=== PATIENT | male | born 1965 | race American Indian/Alaskan Native ===

== ENCOUNTER 2021-05-31 09:46 | Day surgery (SDC) | payer BC ==
[2021-05-31] MEDS ORDERED: HEPARIN 5,000 UNIT/1 ML VIAL SUB-Q NR (10:45)
[2021-05-31] MEDS ORDERED: ceFAZolin/STERILE WATER 2 GM/20 ML SYRINGE IV NR (11:00)
[2021-05-31] MEDS ORDERED: LACTATED RINGERS 1,000 ML IV SCH (11:30)
--- NOTE | 2021-05-31 11:43 | Anesthesia Day of Surgery ---
Anesthesia Day of Surgery - Day of Surgery Patient Examined: Yes Patient H&P Reviewed: Yes Patient is NPO: Yes
--- NOTE | 2021-05-31 11:44 | Anesthesia Consultation ---
Anesthesia Consult and Med Hx Date of service: 05/31/21 - Airway Anesthetic Teeth Evaluation: Good, Caps, Crowns, Bridges ROM Head & Neck: Adequate Mental/Hyoid Distance: Adequate Mallampati Class: Class II Intubation Access Assessment: Good - Pre-Operative Health Status ASA Pre-Surgery Classification: ASA1 Proposed Anesthetic Plan: General - Pulmonary Hx Smoking: No - Central Nervous System Hx Psychiatric Problems: No - Gastrointestinal Hx Gastroesophageal Reflux Disease: No - Hematic Hx Sickle Cell Disease: No - Other Systems Hx Alcohol Use: No Hx Substance Use: No Hx Cancer: No Hx Obesity: No
[2021-05-31] MEDS ORDERED: HYDROmorphone 1 MG/1 ML INJ IV PRN ×3 (12:00→18:15)
[2021-05-31] MEDS ORDERED: CELECOXIB 200 MG CAP PO NR (12:00)
[2021-05-31] MEDS ORDERED: ACETAMINOPHEN 500 MG TAB PO SCH (12:00)
[2021-05-31] MEDS ORDERED: MAGNESIUM OXIDE 400 MG TAB PO SCH (12:00)
[2021-05-31] MEDS ORDERED: ONDANSETRON 4 MG/2 ML INJ IV PRN ×2 (12:00→18:15)
[2021-05-31] MEDS ORDERED: GABAPENTIN 300 MG CAP PO NR (12:00)
[2021-05-31] MEDS ORDERED: BUPIVACAINE/PF (0.5%) 5 MG/1 ML 30 ML VIAL INFILTRATI ONE ×2 (16:01→16:30)
[2021-05-31] MEDS ORDERED: fentaNYL 100 MCG/2 ML INJ ONE (16:02)
[2021-05-31] MEDS ORDERED: LIDOCAINE MPF (2%) 20 MG/1 ML VIAL 5 ML ONE (16:02)
[2021-05-31] MEDS ORDERED: propofoL 200 MG/20 ML VIAL IV ONE (16:02)
[2021-05-31] MEDS ORDERED: dexAMETHasone 20 MG/5 ML VIAL ONE (16:23)
[2021-05-31] MEDS ORDERED: ONDANSETRON 4 MG/2 ML INJ ONE (16:23)
[2021-05-31] MEDS ORDERED: KETOROLAC 30 MG/1 ML INJ ONE (16:24)
[2021-05-31] MEDS ORDERED: SODIUM CHLORIDE 0.9% IRR 1,500 ML BOTTLE IR ONE (16:30)
[2021-05-31] MEDS ORDERED: LACTATED RINGERS 1,000 ML ONE (16:59)
--- NOTE | 2021-05-31 18:13 | Procedure Note ---
Date of procedure: 05/31/21 Pre-op diagnosis: RIH Post-op diagnosis: same (Direct) Procedure: Open repair of RIH Description of procedure: Pt was placed supine on the OR table. General anesthesia was administered. Lower abdomen was prepped and draped. The proposed incision was infiltrated with 8 ml of 0.5% Marcaine. A curvilinear incision was made in the right suprapubic area. Hemostasis was obtained with the Bovie. External oblique aponeurosis was exposed. The aponeurosis was incised over the inguinal canal. A John drain was placed about the cord contents. A direct hernia was identified. Cord was skeletonized and no indirect hernia was found. The conjoined tendon was approximated to the shelving portion of Poupart's ligament with interrupted sutures of 0-Ethibond. External oblique aponeurosis was approximated with a running 3-0 Vicryl. Skin was approximated with a running, subcuticular suture of 4-0 Monocryl. Skin glue was applied. Pt tolerated the procedure well and was taken to PACU in stable condition. Anesthesia: other (LMA) Surgeon: SILVIA RIVERA Estimated blood loss: minimal Pathology: none Condition: stable Disposition: PACU
[2021-05-31] MEDS ORDERED: HYDROmorphone 1 MG/1 ML INJ ONE (18:14)
[2021-05-31] MEDS ORDERED: oxyCODONE /ACETAMINOPHEN 5-325MG TAB PO PRN (18:16)
[2021-05-31] MEDS: HYDROmorphone 1 MG/1 ML INJ IV PRN ×2 (18:18→18:28)
[2021-05-31 18:46] VITALS: BP 123/71
--- NOTE | 2021-05-31 19:22 | Post Anesthesia Evaluation ---
- Post Anesthesia Evaluation Patient Participated: Yes Airway Patent: Yes Stable Respiratory Function: Yes Nausea/Vomiting: No Temp > 96.8F: Yes Pain Manageable: Yes Adequeate Hydration: Yes Anesthesia Complications: No Block Receding Appropriately: Not Applicable Patient on Ventilator: No
== END 2021-05-31 19:10 | disposition home or self-care (01) ==
LOC: OR 09:46
PROVIDERS: ATTEND Surgery
DX: K40.90 Unilateral inguinal hernia, without obstruction or gangrene, not specified as recurrent (principal); Z20.822 Contact with and (suspected) exposure to COVID-19; Z79.899 Other long term (current) drug therapy; Z98.890 Other specified postprocedural states
CPT/HCPCS: 49505; J0690; J1100; J1170; J1644; J1885; J2405; J2704; J3010; J3490; J7120; U0003